=== PATIENT | male | born 1995 | race Hispanic/Latino ===

== ENCOUNTER 2022-02-11 11:29 | Emergency (ER) | payer MEDICAID, OTHER ==
[~2022-02-11] VITALS: Ht 165.1 cm; Wt 65.8 kg
[2022-02-11 11:30] VITALS: BP 128/63
[2022-02-11] MEDS ORDERED: IBUPROFEN 800 MG TAB PO ONE (13:00)
[2022-02-11] MEDS ORDERED: ALBUTEROL INHALER 90MCG/INH IH PRN (13:00)
[2022-02-11] MEDS ORDERED: ACETAMINOPHEN 500 MG TABLET PO ONE (13:00)
[2022-02-11] MEDS ORDERED: ALBU8.5H8 IH (13:33)
[2022-02-11] MEDS ORDERED: D-ME1POW16 PO (13:33)
== END 2022-02-11 13:57 | disposition home or self-care (01) ==
LOC: EDH 11:29
DX: U07.1 COVID-19 (principal); B34.9 Viral infection, unspecified; Z79.1 Long term (current) use of non-steroidal anti-inflammatories (NSAID)
CPT/HCPCS: 71045; 87635; 87804 ×2; 99284; C9803